=== PATIENT | female | born 1960 | race Caucasian/White ===

== ENCOUNTER 2017-02-22 19:22 | Emergency (ER) | payer MEDICAID ==
[~2017-02-22] VITALS: Ht 167.6 cm; Wt 81.6 kg
--- NOTE | 2017-02-22 19:30 | NUR ---
Patient triaged and placed in waiting room. VSS and patient appears in no acute distress at this time. Accompanied by family, awaiting available bed, and MD notified of need for MSE.
[2017-02-22 19:33] VITALS: BP_SYST 114
[2017-02-22 20:09] LABS: BILIRUBIN,URINE NEGATIVE (NEGATIVE); CLARITY/URINE CLEAR (CLEAR); COLOR,URINE YELLOW (YELLOW); GLUCOSE,URINE NEGATIVE (NEGATIVE); KETONES,URINE NEGATIVE (NEGATIVE); LEUKOCYTE ESTERASE ,URINE NEGATIVE (NEGATIVE); NITRITE, URINE NEGATIVE (NEGATIVE); PH,URINE 5.5 (5.0-8.0); PROTEIN URINE NEGATIVE (NEGATIVE); UROBILINOGEN,URINE 0.2 (0.2-1.0)
--- NOTE | 2017-02-22 20:10 | NUR ---
Patient to ED for eval of abd pain 02/19. Patient able to ambulate without difficulty to [facility], awaiting eval by ER MD
--- NOTE | 2017-02-22 20:10 | NUR ---
Patient to ER bed 2 to gown for evaluation. Side rails up. Report given to Saravanan AQUINO.
[2017-02-22 20:11] LABS: BLOOD, URINE TRACE (NEGATIVE)
--- NOTE | 2017-02-22 20:15 | NUR ---
ER at bedside examining patient.
[2017-02-22 20:16] LABS: BACTERIA,URINE FEW /HPF (None Seen); RBC,URINE 0-3 /HPF (0-3); WBC,URINE 0-3 /HPF (0-3)
[2017-02-22 20:17] LABS: MUCUS,URINE 1+ /LPF (None Seen)
[2017-02-22] MEDS ORDERED: NACL 0.9% 1,000 ML IV ONE (21:04)
[2017-02-22] MEDS ORDERED: KETOROLAC TROMETHAMINE 30 MG VIAL IVP ONE (21:15)
[2017-02-22] MEDS ORDERED: ONDANSETRON HCL 4 MG/2 ML VIAL IVP ONE (21:15)
[2017-02-22 21:20] LABS: BASOPHILS % (AUTO) 0.3 % (0.0-2.0); EOSINOPHILS # (AUTO) 0.3 K/uL (0.0-0.4); HEMATOCRIT 42.3 % (36-48); LYMPHOCYTES # (AUTO) 2.8 K/uL (1.0-5.5); LYMPHOCYTES % (AUTO) 37.4 % (20.5-51.5); MEAN CORPUSCULAR HEMOGLOBIN 30 pg (27-31); MEAN CORPUSCULAR HGB CONC 33 % (32-36); MEAN CORPUSCULAR VOLUME 90 fL (79.0-98.0); MONOCYTES # (AUTO) 0.5 K/uL (0.0-1.0); MONOCYTES % (AUTO) 6.4 % (1.7-9.3); NEUTROPHILS % (AUTO) 51.9 % (40.0-70.0); PLATELET COUNT (AUTO) 233 K/uL (130-430); RED BLOOD CELL COUNT(AUTO) 4.69 MIL/uL (4.2-6.2); RED CELL DISTRIBUTION WIDTH 11.7 % (9.0-15.0); WHITE BLOOD COUNT (AUTO) 7.6 K/uL (4.8-10.8)
[2017-02-22 21:29] LABS: CREATININE 0.84 mg/dL (0.55-1.30)
[2017-02-22 21:38] LABS: TOTAL BILIRUBIN 0.3 mg/dL (0.0-1.0); TOTAL PROTEIN, SERUM 7.7 g/dL (6.4-8.3)
[2017-02-22] MEDS ORDERED: DIPHENHYDRAMINE INJ 50 MG/ML VIAL IVP ONE (23:15)
[2017-02-22] MEDS ORDERED: MORPHINE 2 MG/ML INJ. SYRINGE IVP ONE ×2 (23:15)
[2017-02-22] MEDS ORDERED: ONDANSETRON HCL 4 MG/2 ML VIAL ONE (23:21)
--- NOTE | 2017-02-22 23:34 | NUR ---
Patient medicated as ordered, IVF infusing without difficulty no redness or swelling noted at site
--- NOTE | 2017-02-22 23:57 | NUR ---
Patient resting quietly in nad, no c/o pain, no adverse reaction noted
--- NOTE | 2017-02-23 02:00 | NUR ---
Patient given written and verbal discharge instructions and verbalizes understanding. ER MD discussed with patient the results and treatment provided. Patient in stable condition. ID arm band removed. IV catheter removed intact and dressing applied, no active bleeding. Rx of Chelly Last given. Patient educated on pain management and to follow up with PMD. Pain Scale 3. Opportunity for questions provided and answered.
== END 2017-02-23 02:00 | disposition home or self-care (01) ==
LOC: SED 19:22
DX: R10.13 Epigastric pain (principal); R10.31 Right lower quadrant pain; R51 Headache; R11.0 Nausea; E11.9 Type 2 diabetes mellitus without complications; E78.00 Pure hypercholesterolemia, unspecified; Z90.49 Acquired absence of other specified parts of digestive tract
CPT/HCPCS: 36415; 74176; 80053; 81000; 83690; 85025; 96361; 96374; 96375; 99285; J1200; J2270; J2405; J7030